=== PATIENT | female | born 1985 | race Two or more races ===

== ENCOUNTER 2021-02-20 02:20 | Emergency (ER) | payer OTHER ==
[~2021-02-20] VITALS: Ht 160 cm; Wt 61.2 kg
[2021-02-20] MEDS ORDERED: ONDANSETRON 4 MG TAB.RAPDIS ONE (02:30)
[2021-02-20] MEDS ORDERED: ONDANSETRON 4 MG TAB.RAPDIS SL ONE (02:30)
--- NOTE | 2021-02-20 02:37 | NUR ---
PT BIBRA FROM BAR FOR ETOH AND N/V. PT EASILY AROUSABLE TO MECHANICAL STIMULI, RESPIRATIONS EVEN AND UNLABORED. PT CONNECTED TO THE MONITOR AND POX. PT MEDICATED ORDERED.
--- NOTE | 2021-02-20 03:53 | NUR ---
velasquez ([facility]) [phone]
--- NOTE | 2021-02-20 05:51 | NUR ---
MOTHER OF PT [phone] SISTER OF PT. DEL RIO
--- NOTE | 2021-02-20 08:20 | NUR ---
MOM COMING TO PICK HER UP IN 30 MINS.
--- NOTE | 2021-02-20 08:28 | NUR ---
PT AWAKE CRYING WALKED WITH ASSISTANCE TO BR CLEANED PATIENT AND CHANGED BED . CALLED HER MOTHER SHE WILL BE PICKING HER UP. PT TOLERATING PO'S WELL
--- NOTE | 2021-02-20 09:41 | NUR ---
Patient discharged to home in stable condition. Written and verbal after care instructions given. Patient verbalizes understanding of instruction.
[2021-02-20 09:43] VITALS: BP 109/72
== END 2021-02-20 09:44 | disposition home or self-care (01) ==
LOC: ER 02:20
DX: F10.129 Alcohol abuse with intoxication, unspecified (principal); Y90.9 Presence of alcohol in blood, level not specified
CPT/HCPCS: 99283; Q0162